=== PATIENT | male | born 1990 | race Hispanic/Latino ===

== ENCOUNTER 2019-05-28 20:50 | Emergency (ER) | payer OTHER ==
[~2019-05-28] VITALS: Ht 175.3 cm; Wt 84.1 kg
[2019-05-28] MEDS ORDERED: ULTRAM50 M1 PO (22:44)
[2019-05-28] MEDS ORDERED: BACTRIM DS1 TAB PO (22:44)
[2019-05-28] MEDS ORDERED: CEPHALEXIN500 MG PO (22:44)
[2019-05-28 23:30] VITALS: BP 145/82
== END 2019-05-28 23:35 | disposition home or self-care (01) | DRG 603 ==
LOC: ED 20:50
PROC: 0H9DXZZ Drainage of Right Lower Arm Skin, External Approach (ICD-10-PCS; principal; 2019-05-28)
DX: L02.413 Cutaneous abscess of right upper limb (principal); B95.62 Methicillin resistant Staphylococcus aureus infection as the cause of diseases classified elsewhere

== ENCOUNTER 2019-05-29 21:33 | Emergency (ER) | payer OTHER ==
[~2019-05-29] VITALS: Ht 175.3 cm; Wt 84.0 kg
[~2019-05-29 21:33] MED LIST: BACTRIM DS1 TAB PO; CEPHALEXIN500 MG PO; ULTRAM50 M1 PO
[2019-05-29 22:45] VITALS: BP 157/103
== END 2019-05-29 22:50 | disposition home or self-care (01) | DRG 951 ==
LOC: ED 21:33
DX: Z48.01 Encounter for change or removal of surgical wound dressing (principal)

== ENCOUNTER 2019-05-31 21:05 | Emergency (ER) | payer OTHER ==
[~2019-05-31] VITALS: Ht 175.3 cm; Wt 100.4 kg
[2019-05-31 21:47] VITALS: BP 148/89
== END 2019-05-31 21:47 | disposition home or self-care (01) | DRG 951 ==
LOC: ED 21:05
DX: Z48.01 Encounter for change or removal of surgical wound dressing (principal)

== ENCOUNTER 2020-10-13 23:16 | Inpatient (IN) | payer OTHER ==
[~2020-10-13] VITALS: Ht 175.3 cm; Wt 97.0 kg
--- NOTE | 2020-10-14 | NUR ---
AMBULATORY TO ROOM. TRIAGED AT BEDSIDE.
[2020-10-14 00:54] LABS: IMMATURE GRANULOCYTES 1.1 % (0.0-5.0); MEAN CELL VOLUME 90.1 fL CALC (80.0-100.0); NEUT# 2.95 thou/uL (1.82-7.42)
[2020-10-14 00:58] LABS: HEMATOCRIT 49.4 % (39.0-50.0); HEMOGLOBIN 16.9 g/dl (14.0-18.0); MEAN CORPUSCULAR HGB 30.8 pG CALC (26.0-32.0); RED BLOOD COUNT 5.48 mill/uL (4.70-6.10)
[2020-10-14 00:59] LABS: MEAN CORPUSCULAR HGB CONC 34.2 g/dL CAL (32.0-36.0); RED CELL DISTRI WIDTH 11.5 % (11.5-15.5)
[2020-10-14 01:03] LABS: ALBUMIN 4.5 g/dL (3.2-5.0); ALKALINE PHOSPHATASE 101 u/l (38-126); ANION GAP 17 (6-22 (CALC)); BUN 11 mg/dL (9-20); BUN/CREATININE RATIO 15 (12-20 (CALC)); CARBON DIOXIDE 22 mmol/l (22-30); CHLORIDE 96 mmol/l (95-108); CREATININE 0.8 mg/dL (0.7-1.3); GFR > 60 ML/MIN (>=60 (CALC)); GFR FOR AFR.AMER. > 60 ML/MIN (>=60 (CALC)); POTASSIUM 3.9 mmol/l (3.5-5.1); SGOT/AST 250 u/l (17-59); SODIUM 131 mmol/l (137-146); TOTAL PROTEIN 7.8 g/dL (6.3-8.2)
--- NOTE | 2020-10-14 02:25 | NUR ---
PATIENT TO CT SCAN
--- NOTE | 2020-10-14 02:49 | NUR ---
MOVEDD TO ROOM 15
--- NOTE | 2020-10-14 05:00 | NUR ---
PATIENT AGREES WITH PLAN FOR ADMISSION
[2020-10-14 05:20] LABS: ETHYL ALCOHOL 0 mg/dl (0-30)
--- NOTE | 2020-10-14 07:21 | NUR ---
REPORT CALLED TO CLEMENT LUND ON MED SURG
--- NOTE | 2020-10-14 08:12 | NUR ---
PATIENT RECEIVED UP FROM ED AT THIS TIME. MEASUREMENT PSYCHOLOGIST DONE, PATIENT ORIENTED TO ROOM AND SURROUNDINGS AND SAFETY MEASURES. LUNG GARCIA ARE CLEAR IN UPPER GARCIA AND SLIGHTLY DIMINISHED IN LOWER GARCIA. PATIENT IS ALERT AND ORIENTED AT THIS TIME. PATIENT IS [place] SPEAKING BUT CAN UNDERSTAND SOME [place]ENLAND[place]. MARY ANNNET CECILIO ANY MEDICAL HISTORY TO INCLUDE DIABETES. NO SIGNS OF SKIN ISSUES AND PRETTY STATED LAST BOWEL MOVEMENT WAS ON 10/13/20 AND "NORMAL" STATED BY PATIENT. PATIENT DENIES ANY PAIN AT THIS TIME. PATIENT IS ON TELE AND IS BEING MONITORED BY ED. PATIENT IS ON 02 VIA NASAL CANNULA AT 2 LITERS AND SPO2 IS 96%. SIDERAILS ARE UP X 2 CALL LIGHT IS WITHIN REACH.
--- NOTE | 2020-10-14 08:15 | NUR ---
PT TAKE UP TO THE FLOOR.
[2020-10-14 08:55] VITALS: BP 153/90
[2020-10-14 10:30] VITALS: BP 142/81
--- NOTE | 2020-10-14 11:41 | NUR ---
PATIENT RESTING IN BED AT THIS TIME. SIDERAILS ARE UP X2 DENIES ANY NEEDS AND OR PAIN. O2 REMAINS ON AT 2.5 LITERS VIA NASAL CANNULA. TELE MONITORE IN PLACE AND BEING MONITORED BY ED.
[2020-10-14 15:15] VITALS: BP 140/83
--- NOTE | 2020-10-14 16:00 | NUR ---
PATIENT LAYING IN BED WATCHING TV. PATIENT DENEIS ANY PAIN AND DENIES ANY NEEDS AT THIS TIME. SIDERAILS ARE UP X2 CALL LIGHT IS WITHIN REACH. 02 REMAINS ON AT 2.5 LITERS NASAL CANNULA. TELE MONITOR IS IN PLACE AND PATIENT BEING MONITORED BY ED.
[2020-10-14 18:55] VITALS: BP 144/79
--- NOTE | 2020-10-14 19:33 | NUR ---
ASSESSMENT COMPLETED AT THIS TIME. PT OXYGEN SAT LEVELS ARE 96% ON 3.5LNC AT THIS TIME. DENIES SOB OR ANY OTHER DISTRESSES. PT APPEARS RELAXED AND WATCHING TV.
--- NOTE | 2020-10-14 21:33 | NUR ---
PT MEDICATED ORDERS PROVIDE. ASSESSMENT HAS BEEN COMPLETED. PT DENIES ANY DISTRESSES AT THIS TIME.
[2020-10-15 01:09] VITALS: BP 136/72
--- NOTE | 2020-10-15 02:00 | NUR ---
PT AWOKE TO MY ENTERING THE ROOM. DENIES ANY NEEDS AT THIS TIME. CALL LIGHT AT SIDE.
--- NOTE | 2020-10-15 03:30 | NUR ---
ANTIBIOTIC THERAPY ADMINISTERED AT THIS TIME. NO S/O DISTRESS NOTED.
[2020-10-15 04:38] VITALS: BP 132/75
--- NOTE | 2020-10-15 04:41 | NUR ---
PT AWAKE WHEN I ENTERED THE ROOM. V/S ASSESSED TO BE STABLE. O2 SAT 96% ON 3L, TITRATED TO 2.5L, WILL REASSESS.
[2020-10-15 05:43] LABS: HEMATOCRIT 47.3 % (39.0-50.0); HEMOGLOBIN 15.7 g/dl (14.0-18.0); IMMATURE GRANULOCYTES 0.7 % (0.0-5.0); MEAN CORPUSCULAR HGB 30.2 pG CALC (26.0-32.0); MEAN CORPUSCULAR HGB CONC 33.2 g/dL CAL (32.0-36.0); NEUT# 3.57 thou/uL (1.82-7.42); RED BLOOD COUNT 5.2 mill/uL (4.70-6.10); RED CELL DISTRI WIDTH 11.7 % (11.5-15.5)
[2020-10-15 06:03] LABS: MAGNESIUM 1.9 mg/dL (1.6-2.3)
[2020-10-15 06:08] LABS: ALBUMIN 3.7 g/dL (3.2-5.0); ALKALINE PHOSPHATASE 86 u/l (38-126); ANION GAP 12 (6-22 (CALC)); BILIRUBIN, TOTAL 0.7 mg/dL (0.0-1.4); BUN 11 mg/dL (9-20); BUN/CREATININE RATIO 16 (12-20 (CALC)); C-REACTIVE PROTEIN 6.8 mg/dL (0-0.9); CARBON DIOXIDE 25 mmol/l (22-30); CHLORIDE 100 mmol/l (95-108); CREATININE 0.7 mg/dL (0.7-1.3); GFR > 60 ML/MIN (>=60 (CALC)); GFR FOR AFR.AMER. > 60 ML/MIN (>=60 (CALC)); POTASSIUM 4.1 mmol/l (3.5-5.1); SGOT/AST 107 u/l (17-59); SODIUM 134 mmol/l (137-146); TOTAL PROTEIN 6.6 g/dL (6.3-8.2)
--- NOTE | 2020-10-15 07:00 | NUR ---
PT REPORT RECEIVED FROM NIGHT NURSEVASYL
[2020-10-15 07:55] VITALS: BP 144/81
--- NOTE | 2020-10-15 08:00 | NUR ---
PT WAS FOUND RESTING IN BED;PT IS A&O X3;PT IS INDONESIAN SPEAKING, BUT IS ABLE TO COMMUNICATE ON A LIMITED BASIS;VS AND ASSESSMENT WERE COMPLETED;PT HAS NO REPORTS OF PAIN AT THIS TIME;HEART SOUNDS ARE REGULAR IN RATE AND RHYTHM;LUNG SOUNDS ARE CLEAR BUT DIMINISHED;RESPIRATIONS ARE EVEN AND UNLABORED ON O2@2L VIA NC;#18G IV IN LAC IS RUNNING NS@125ML/HR;IV SITE IS FREE OF COMPLICATIONS AT THIS TIME;SAFETY PRECAUTIONS ARE IN PLACE;CALL LIGHT WITHIN REACH;WILL CONTINUE TO MONITOR.
--- NOTE | 2020-10-15 12:00 | NUR ---
PT WAS FOUND SITTING UP IN BEDSIDE CHAIR;PT HAS NO COMPLAINTS OF PAIN AT THIS TIME;O2@2L VIA NC IS IN PLACE;TELE IS IN PLACE;SAFETY PRECAUTIONS IN PLACE;CALL LIGHT WITHIN REACH;WILL CONTINUE TO MONITOR.
[2020-10-15 14:46] VITALS: BP 141/81
--- NOTE | 2020-10-15 16:00 | NUR ---
PT WAS FOUND RESTING IN BEDSIDE CHAIR;PT HAS NO REPORTS OF PAIN AT THIS TIME;TELE IS IN PLACE;#18G IV IN LAC IS RUNNING NS@50ML/HR;IV SITE IS FREE OF COMPLICATIONS AT THIS TIME;O2@2L VIA NC IS IN PLACE;SAFETY PRECAUTIONS IN PLACE;CALL LIGHT WITHIN REACH;WILL CONTINUE TO MONITOR.
[2020-10-15 19:00] VITALS: BP 139/87
--- NOTE | 2020-10-15 20:00 | NUR ---
PHYSICAL ASSESMENT COMPLETE. PT CURRENTLY DENIES PAIN OR DISCOMFORT. SCHEDULED MEDICATIONS AND PRN MEDICATION ADMINISTERED, SEE E-MAR. PT DENIES ANY NEEDS AT THIS TIME. PLAN OF CARE REVIEWED, PT DENIES QUESTIONS, VERBALIZES UNDERSTANDING. ITEMS WITHIN REACH, BED LOCKED IN LOW POSITION W/ BEDRAILS UP X2. CALL YODER WITHIN REACH, AGREES TO CALL PRN.
[2020-10-16] VITALS (7 sets, daily range): BP systolic 120–136; BP diastolic 69–89
--- NOTE | 2020-10-16 01:23 | NUR ---
PT LAYING IN BED WITH EYES CLOSED, APPEARS TO BE SLEEPING, APPEARS COMFORTABLE AND IN NO DISTRESS. RESPIRATIONS REGULAR AND UNLABORED. ITEMS REMAIN WITHIN REACH, CALL YODER REMAINS WITHIN REACH. BED REMAINS LOCKED AND IN LOW POSITION WITH BEDRAILS UP X2. WILL CONTINUE TO MONITOR.
--- NOTE | 2020-10-16 03:57 | NUR ---
PT RESTING IN BED, NO SIGNS OF DISTRESS NOTED, RESP EVEN AND UNLABORED. PT VOICES NO NEEDS OR COMPLAINTS AT THIS TIME. CALL LIGHT IN REACH, CONTINUE TO MONITOR.
[2020-10-16 05:58] LABS: HEMATOCRIT 47.4 % (39.0-50.0); HEMOGLOBIN 15.9 g/dl (14.0-18.0); IMMATURE GRANULOCYTES 0.5 % (0.0-5.0); MEAN CORPUSCULAR HGB 30.5 pG CALC (26.0-32.0); MEAN CORPUSCULAR HGB CONC 33.5 g/dL CAL (32.0-36.0); NEUT# 1.99 thou/uL (1.82-7.42); RED BLOOD COUNT 5.21 mill/uL (4.70-6.10); RED CELL DISTRI WIDTH 11.7 % (11.5-15.5)
[2020-10-16 06:20] LABS: ALBUMIN 3.6 g/dL (3.2-5.0); ALKALINE PHOSPHATASE 90 u/l (38-126); ANION GAP 15 (6-22 (CALC)); BILIRUBIN, TOTAL 0.7 mg/dL (0.0-1.4); BUN 15 mg/dL (9-20); BUN/CREATININE RATIO 29 (12-20 (CALC)); CARBON DIOXIDE 23 mmol/l (22-30); CHLORIDE 104 mmol/l (95-108); CREATININE 0.5 mg/dL (0.7-1.3); GFR > 60 ML/MIN (>=60 (CALC)); GFR FOR AFR.AMER. > 60 ML/MIN (>=60 (CALC)); POTASSIUM 4.3 mmol/l (3.5-5.1); SGOT/AST 109 u/l (17-59); SODIUM 137 mmol/l (137-146); TOTAL PROTEIN 6.6 g/dL (6.3-8.2)
--- NOTE | 2020-10-16 07:00 | NUR ---
PT REPORT RECEIVED FROM NIGHT NURSEJERALD.
--- NOTE | 2020-10-16 16:00 | NUR ---
PT WAS FOUND RELAXING IN THE BEDSIDE CHAIR;PT EXPRESSES NO NEEDS OR PAIN AT THIS TIME;TELE IS IN PLACE;02@1.5L VIA NC IS IN PLACE;#18G IV IN LAC IS RUNNING NS@50ML/HR AT THIS TIME;IV SITE IS FREE OF COMPLICATIONS AT THIS TIME;SAFETY PRECAUTIONS IN PLACE;CALL LIGHT WITHIN REACH;BED IN LOWEST POSITION;WILL CONTINUE TO MONITOR.
[2020-10-17 04:25] VITALS: BP 121/85
[2020-10-17 05:05] LABS: HEMATOCRIT 47.8 % (39.0-50.0); HEMOGLOBIN 16.2 g/dl (14.0-18.0); IMMATURE GRANULOCYTES 0.2 % (0.0-5.0); MEAN CELL VOLUME 90.9 fL CALC (80.0-100.0); MEAN CORPUSCULAR HGB 30.8 pG CALC (26.0-32.0); MEAN CORPUSCULAR HGB CONC 33.9 g/dL CAL (32.0-36.0); NEUT# 2.44 thou/uL (1.82-7.42); RED BLOOD COUNT 5.26 mill/uL (4.70-6.10); RED CELL DISTRI WIDTH 11.8 % (11.5-15.5)
[2020-10-17 05:22] LABS: ALBUMIN 3.7 g/dL (3.2-5.0); ALKALINE PHOSPHATASE 99 u/l (38-126); ANION GAP 14 (6-22 (CALC)); BILIRUBIN, TOTAL 0.8 mg/dL (0.0-1.4); BUN 15 mg/dL (9-20); BUN/CREATININE RATIO 29 (12-20 (CALC)); C-REACTIVE PROTEIN 3.1 mg/dL (0-0.9); CARBON DIOXIDE 23 mmol/l (22-30); CHLORIDE 104 mmol/l (95-108); CREATININE 0.5 mg/dL (0.7-1.3); GFR > 60 ML/MIN (>=60 (CALC)); GFR FOR AFR.AMER. > 60 ML/MIN (>=60 (CALC)); POTASSIUM 4.2 mmol/l (3.5-5.1); SGOT/AST 121 u/l (17-59); SODIUM 137 mmol/l (137-146); TOTAL PROTEIN 6.8 g/dL (6.3-8.2)
[2020-10-17 07:36] VITALS: BP 136/80
--- NOTE | 2020-10-17 07:40 | NUR ---
ASSESSMENT IS COMPLTED: IV SITE IS FREE FROM REDNESS OR EDEMA. HR IS REG,PULSES ARE STRONG X4, ABD IS SOFT WITH ACTIVE BS. BREATH SOUNDS ARE CLEAR, BILATERALLY. TELE MONITOR IN PLACE.
--- NOTE | 2020-10-17 09:42 | NUR ---
PT SPOKE WITH DR LAWRENCE AND HAD A BM TODAY.
[2020-10-17 10:30] VITALS: BP 108/68
--- NOTE | 2020-10-17 11:56 | NUR ---
PT DID A WALK TEST WITHOUT O2 IS 94% ON RA, DROPPED TO 92%. [facility] NOTIFIED.
--- NOTE | 2020-10-17 12:15 | NUR ---
PT IS SITTING IN THE CHAIR, NO DISTRESS NOTED. IV SITE IS FREE FROM REDNESS OR EDEMA. NO C/O PAIN
[2020-10-17 14:25] VITALS: BP 116/67
--- NOTE | 2020-10-17 19:43 | NUR ---
PT WAS SLEEPING, AWOKE TO MY ENTERING THE ROOM. NO S/O DISTRESS NOTED AT THIS TIME. ASSESSMENT COMPLETED. BOX OFFICE ATTENDANT ENTERED ROOM FOR ACCU-CHECK ASSESSMENT ALSO AT THIS TIME. DINNER TRAY IS AT BEDSIDE, PT ASKED ME TO REMOVE IT. PT DENIES SOB/COUGH/N/V AT THIS TIME.
[2020-10-17 20:00] VITALS: BP 138/76
--- NOTE | 2020-10-17 21:10 | NUR ---
PT MEDICATED ORDERS PROVIDE. DENIES ANY OTHER NEEDS AT THIS TIME. OXYGEN SAT LEVEL STABLE ON 1L AT THIS TIME.
[2020-10-18] VITALS: BP 128/77
--- NOTE | 2020-10-18 03:39 | NUR ---
IV ANTIBIOTIC THERAPY ADMINISTERED ORDERS PROVIDED. PT IS SLEEPING, SLIGHTLY AWOKE TO MY ENTERING ROOM, DENIED NEEDS AND PROMPTLY RETURNED TO SLEEP.
[2020-10-18 04:40] VITALS: BP 126/71
--- NOTE | 2020-10-18 04:40 | NUR ---
LAB EXITING ROOM AT THIS TIME. IV THERAPY ANTIBIOTIC ADMINISTERED AT THIS TIME. V/S ALSO ASSESSED. PT DENIES ANY NEEDS, CALL LIGHT AT SIDE AND PT ENCOURAGED TO CALL.
[2020-10-18 04:54] LABS: HEMATOCRIT 49.6 % (39.0-50.0); HEMOGLOBIN 16.5 g/dl (14.0-18.0); MEAN CELL VOLUME 91.5 fL CALC (80.0-100.0); MEAN CORPUSCULAR HGB 30.4 pG CALC (26.0-32.0); MEAN CORPUSCULAR HGB CONC 33.3 g/dL CAL (32.0-36.0); RED BLOOD COUNT 5.42 mill/uL (4.70-6.10); RED CELL DISTRI WIDTH 11.6 % (11.5-15.5)
[2020-10-18 05:18] LABS: BUN 17 mg/dL (9-20); BUN/CREATININE RATIO 22 (12-20 (CALC)); CHLORIDE 101 mmol/l (95-108); CREATININE 0.8 mg/dL (0.7-1.3); GFR > 60 ML/MIN (>=60 (CALC)); GFR FOR AFR.AMER. > 60 ML/MIN (>=60 (CALC)); POTASSIUM 4.2 mmol/l (3.5-5.1); SODIUM 137 mmol/l (137-146)
[2020-10-18 05:19] LABS: ANION GAP 12 (6-22 (CALC)); CARBON DIOXIDE 28 mmol/l (22-30)
[2020-10-18 07:49] VITALS: BP 145/74
--- NOTE | 2020-10-18 07:49 | NUR ---
PT SLEEPING IN BED. AWAKENED TO COMPLETE ASSESSMENT. A&O X4. NO DISTRESS NOTED. O2 VIA NC @1.5L IN PLACE, CURRENTLY SUSTAINING 94-96%, O2 REMOVED, PT CURRENTLY VIA ROOM AIR SUSTAINING 93-94%. O2 TO BE CLOSELY MONITORED FOR OXYGEN SUPPLEMENTATIONAL NEEDS. PT ENCOURAGED TO CALL IF SOB OCCURS, PT REPORTS TO BE FEELING BETTER TODAY. CLEAR/DIMINISHED BREATH SOUNDS UPON AUSCULTATION. ACTIVE BOWEL SOUNDS X4 QUADS. NO NEEDS AT THIS TIME. ASSESSMENT COMPLETED. DISCUSSED POC. CALL LIGHT WITHIN REACH.
--- NOTE | 2020-10-18 09:15 | NUR ---
O2 USTAINING 92-93% VIA ROOM AIR. NO DISTRESS NOTED OR REPORTED. CALL LIGHT WITHIN REACH.
[2020-10-18 10:25] VITALS: BP 123/72
[2020-10-18] MEDS ORDERED: METFORMIN500 M2 PO (12:23)
[2020-10-18] MEDS ORDERED: DECADRON6 MG PO (12:25)
[2020-10-18] MEDS ORDERED: ZPAK PO (12:28)
--- NOTE | 2020-10-18 12:30 | NUR ---
NO NEEDS AT THIS TIME. NO DISTRESS NOTED. UPDATED PT ON D/C PLANNING; PT AGREEABLE. PT TO UPDATE ME ON TRANSPORATION. REMAINS ON ROOM AIR. CALL LIGHT WITHIN REACH.
--- NOTE | 2020-10-18 14:04 | NUR ---
Discharge instructions given and written in [place]. Patient verbalizes understanding of same. Discharged in stable condition remained on Room Air throughout the shift sustaining 93-94%, denies any SOB. 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 Diabetic education given. Pt receptive to education, pt to return to work on 10/27 per d/c instructions by YOANNA. Pt transported via Wheelchair to Home with staff. All belongings sent with pt.
== END 2020-10-18 14:10 | disposition home or self-care (01) | DRG 177 ==
LOC: ED 23:16 → ED-I 10-14 00:21 → ED 10-14 00:21 → ED-I 10-14 04:55 → ED 10-14 05:10 → MS2 10-14 05:11
PROVIDERS: Emergency Medicine; Nurse Practitioner; ADMIT Internal Medicine; ATTEND Internal Medicine
PROC: XW033E5 Introduction of Remdesivir Anti-infective into Peripheral Vein, Percutaneous Approach, New Technology Group 5 (ICD-10-PCS; principal; 2020-10-14)
DX: U07.1 COVID-19 (principal); J12.82 Pneumonia due to coronavirus disease 2019; R09.02 Hypoxemia; E11.9 Type 2 diabetes mellitus without complications; K75.81 Nonalcoholic steatohepatitis (NASH)
CPT/HCPCS: J1650; Q9967